=== PATIENT | male | born 1995 | race African-American/Black ===

== ENCOUNTER 2017-01-23 10:28 | Emergency (ER) | payer OTHER, MEDICAID ==
[~2017-01-23] VITALS: Ht 170.2 cm; Wt 70.0 kg
[2017-01-23 10:30] VITALS: BP 126/85
[2017-01-23] MEDS ORDERED: HGH (10:32)
[2017-01-23] MEDS ORDERED: BACITRACIN ZINC OINT UDPKT TOP ONE (14:30)
[2017-01-23] MEDS ORDERED: LIDOCAINE HCL 1% 20ML VIAL (Pyxis) INJ MC ONE (14:30)
[2017-01-23] MEDS ORDERED: TETANUS, DIPHTHERIA, PERTUSSIS VAC/PF 0.5ML (>7YR OLD) IM ONE (14:30)
== END 2017-01-23 16:54 | disposition home or self-care (01) ==
LOC: ER 10:37
DX: S61.421A Laceration with foreign body of right hand, initial encounter (principal); S61.412A Laceration without foreign body of left hand, initial encounter; W22.03XA Walked into furniture, initial encounter; Y93.89 Activity, other specified; Y92.89 Other specified places as the place of occurrence of the external cause; Y99.8 Other external cause status
CPT/HCPCS: 12002; 12034; 73130; 90471; 90715; 99285; J3490; X7700; Z7610; 12054; 99284